=== PATIENT | male | born 1945 | race Caucasian/White ===

== ENCOUNTER 2017-07-07 14:33 | Observation (INO) ==
[2017-07-07] MEDS ORDERED: methylPREDNISolone 125 MG/2 ML VIAL IVP ONE (14:41)
[2017-07-07] MEDS ORDERED: Ipratropium/Albuterol Neb 3 ML IH ONE (14:41)
[2017-07-07] MEDS ORDERED: 0.9 % Sodium Chloride 1,000 ML IVC ONE (14:41)
--- NOTE | 2017-07-07 14:41 | Emergency Department Note ---
Disposition Clinical Impression: Influenza, Acute exacerbation of chronic obstructive airways disease Acute renal failure Qualifiers: Acute renal failure type: unspecified Qualified Code(s): N17.9 - Acute kidney failure, unspecified Disposition: Admitted As Inpatient Condition: Fair Referrals: Macrina Suarez MD [Primary Care Provider] - Forms: ED Satisfaction Letter General Adult HPI - General Chief complaint: ED Upper Respiratory Infection Stated complaint: "don't feel good" Time Seen by Provider: 07/07/17 14:36 Source: patient, family Mode of arrival: private vehicle Limitations: no limitations Nursing Notes Reviewed: Yes Vital Signs Reviewed: Yes - History of Present Illness HPI Narrative: Patient has been in respite care in a intermediate for about a week due to some other deaths in the family. He was taken from the intermediate 2 days ago, on Friday. He is noted to have some increased cough that is productive of some clear phlegm initially. He states that is pretty typical for him status post laryngectomy with a chronic cough. His cough is becoming more deep, rattling and productive now of copious green tinged sputum. His family states that they have to suction 2-3 times today bringing up lots of mucus. He has started to look pale and has had decreased solid and liquid intake. Had some generalized malaise. He has not been having nausea, vomiting or diarrhea. He has not had bloody or black stools. He has not been having fevers or chills. He has indicated that he has had pain in his anterior chest and back with coughing. He has been maintained on his home medications including oxygen at 2 L nasal cannula. His family has not checked his saturations at home. He arrived here at 89% on room air. He is not known to have specific ill exposures but they do not know what he was around at the intermediate. Onset (ago): day(s) Location: chest, back Pain Severity: moderate Consistency: intermittent Improves with: rest Worsens with: movement, other (Coughing) Associated symptoms: Reports: confusion (Alzheimer's with reported increased confusion), chest pain, cough, fever/chills, loss of appetite, malaise, shortness of breath, weakness. Denies: diaphoresis, headaches, nausea/vomiting , rash, seizure, syncope - Related Data Home Medications Medication Instructions Recorded Confirmed No Known Home Drugs 07/07/17 07/07/17 Allergies Allergy/AdvReac Type Severity Reaction Status Date / Time codeine AdvReac Hallucinati Verified 05/08/16 07:56 ng morphine AdvReac Hallucinati Verified 05/08/16 07:56 ng All systems ED: reviewed and negative except as stated. Past Medical History - Past Medical History Attestation: Yes The following information was validated with the patient. Source: patient, old records reviewed, obtained from family, nursing notes reviewed Medical history: Reports: cancer (Laryngeal cancer), COPD, CVA, dementia ( Alzheimer's), hyperlipidemia, hypertension, thyroid disease, other Surgical history: Reports: cataract, tracheostomy, other (Laryngectomy) Psychiatric history: Reports: anxiety, depression, panic disorder, PTSD, other - Social History Smoking Status: Never smoker Smokeless Tobacco Status: No Alcohol use: Reports: none Drug use: Reports: none Physical Exam - General Limitations: altered mental status, physical limitation, age General appearance: alert, in no apparent distress - Head Head exam: atraumatic, normocephalic, normal inspection - Eye Eye exam: Present: normal appearance, PERRL, EOMI. Absent: conjunctival injection - ENT ENT exam: normal exam, normal oropharynx, mucous membranes moist - Neck Neck exam: Present: full ROM, trachea midline, other (Patient has an intact tracheostomy for which he is bubbling a yellow mucus.). Absent: lymphadenopathy - Chest Chest inspection: Present: normal inspection, symmetric chest wall rise - Respiratory Respiratory exam: Present: respiratory distress, other (Rhonchi and conducted tracheal sounds.). Absent: wheezes, accessory muscle use, prolonged expiratory phase - Cardiovascular Cardiovascular exam: Present: regular rate, normal rhythm, normal heart sounds. Absent: tachycardia - Abdominal Exam Abdominal exam: Present: soft, Non-Tender, normal bowel sounds. Absent: tenderness, distention, guarding, rebound, rigidity - Extremities Exam Extremities exam: Present: normal inspection, full ROM, normal capillary refill. Absent: tenderness, pedal edema, calf tenderness - Expanded Lower Extremity Exam Neurovascular/Tendon exam: Present: normal capillary refill. Absent: motor deficit, sensory deficit, tendon deficit Gait: not tested/not observed - Back Exam Back exam: Present: normal inspection - Neurological Exam Neurological exam: Present: alert. Absent: motor sensory deficit - Psychiatric Psychiatric exam: Present: normal mood, flat affect - Skin Skin exam: Present: warm, dry, intact, pallor. Absent: rash, diaphoresis Course Course Narrative: All results were discussed with the patient, family and Dr. Spring. Verbal orders have been obtained for his admission. He is started on Tamiflu in addition to his antibiotics for COPD exacerbation. He is continued on IV fluids for his renal insufficiency with repeat laboratories in the morning. Vital Signs Temperature 96.9 F L 07/07/17 14:33 Pulse Rate 73 07/07/17 14:33 Respiratory Rate 20 07/07/17 14:33 Blood Pressure 81/52 07/07/17 14:33 O2 Sat by Pulse Oximetry 91 07/07/17 14:33 Temperature 96.9 F L 07/07/17 14:33 Pulse Rate 78 07/07/17 15:19 Respiratory Rate 20 07/07/17 15:19 Blood Pressure 99/53 07/07/17 15:19 O2 Sat by Pulse Oximetry 94 07/07/17 15:19 Oxygen Delivery Oxygen Delivery Trach Mask Medical Decision Making - Medical Records Medical records reviewed: Yes I reviewed the patient's medical records. - Lab Data Lab results reviewed: Yes I reviewed the patient's lab results. Result diagrams: 07/07/17 15:00 07/07/17 15:00 Lab Results 07/07/17 07/07/17 07/07/17 Range/Units 15:00 15:00 15:00 WBC 10.5 (4.3-11.1) K/mcL RBC 4.63 (4.19-5.50) M/mcL Hgb 12.8 L (12.9-16.9) g/dL Hct 37.5 (37.5-50.1) % MCV 81.0 L (83.0-100.0) fL MCH 27.6 L (28.0-33.3) pg MCHC 34.1 (31.6-35.5) g/dL RDW 14.7 H (11.5-14.5) % Plt Count 220 (140-400) K/mcL MPV 9.8 (9.4-12.4) fL Immature Gran % 0.5 (0-4) % Seg Neutrophils % 70.8 % Lymphocytes % 14.1 % Monocytes % 13.5 % Eosinophils % 0.6 % Basophils % 0.5 % Neutrophils # 7.4 (1.6-8.9) K/mcL Lymphocytes # 1.5 (0.6-4.6) K/mcL Monocytes # 1.4 H (0.0-1.3) K/mcL Eosinophils # 0.1 (0.0-0.6) K/mcL Basophils # 0.1 (0.0-0.2) K/mcL Sodium 134 L (136-145) mEq/L Potassium 4.6 H (3.5-4.5) mEq/L Chloride 99 (98-109) mEq/L Carbon Dioxide 20 (19-29) mEq/L BUN 28 H (8-26) mg/dL Creatinine 3.98 H (0.72-1.25) mg/dL Est GFR ( Amer) 18 L (> 60) Est GFR (Non-Af Amer) 15 L (> 60) BUN/Creatinine Ratio 7 (6-26) Glucose 107 H (70-99) mg/dL Calculated Osmolality 284 (280-300) Lactic Acid 0.9 (0.5-2.2) mmol/L Calcium 9.0 (8.6-10.8) mg/dL Troponin I (0-0.03) ng/mL 07/07/17 Range/Units 15:00 WBC (4.3-11.1) K/mcL RBC (4.19-5.50) M/mcL Hgb (12.9-16.9) g/dL Hct (37.5-50.1) % MCV (83.0-100.0) fL MCH (28.0-33.3) pg MCHC (31.6-35.5) g/dL RDW (11.5-14.5) % Plt Count (140-400) K/mcL MPV (9.4-12.4) fL Immature Gran % (0-4) % Seg Neutrophils % % Lymphocytes % % Monocytes % % Eosinophils % % Basophils % % Neutrophils # (1.6-8.9) K/mcL Lymphocytes # (0.6-4.6) K/mcL Monocytes # (0.0-1.3) K/mcL Eosinophils # (0.0-0.6) K/mcL Basophils # (0.0-0.2) K/mcL Sodium (136-145) mEq/L Potassium (3.5-4.5) mEq/L Chloride (98-109) mEq/L Carbon Dioxide (19-29) mEq/L BUN (8-26) mg/dL Creatinine (0.72-1.25) mg/dL Est GFR ( Amer) (> 60) Est GFR (Non-Af Amer) (> 60) BUN/Creatinine Ratio (6-26) Glucose (70-99) mg/dL Calculated Osmolality (280-300) Lactic Acid (0.5-2.2) mmol/L Calcium (8.6-10.8) mg/dL Troponin I 0.02 (0-0.03) ng/mL - Radiology Data Radiology results reviewed: Yes I reviewed the patient's radiology results. Single view chest x-ray is performed. This does not demonstrate evidence for infiltrate, effusion, pneumothorax, foreign body or heart failure. The cardiac silhouette is normal. I do not see abnormality to the osseous structures of the chest. This is on my interpretation. Impressions Chest X-Ray 07/07/17 14:42 IMPRESSION: Findings suggestive of mild pulmonary interstitial edema. Correlate with volume status. No consolidative pneumonia. No pleural effusion or pneumothorax. D/ / Sukh Casas MD / Sukh Casas MD Interpreting Provider: Sukh Casas MD - EKG Data EKG #1 EKG attestation: Yes I reviewed and interpreted this EKG. EKG shows normal: sinus rhythm, QRS complexes, ST-T waves Mullin/QRS: left axis deviation Heart block present: 1st Degree Interpretation: no acute changes, nonspecific ST-T wave changes
[2017-07-07] MEDS ORDERED: Azithromycin 500 MG in D5% in Water 250 ML IVPB ONE (14:44)
[2017-07-07 15:20] LABS: Basophils # 0.1 K/mcL (0.0-0.2); Basophils % 0.5 %; Eosinophils # 0.1 K/mcL (0.0-0.6); Eosinophils % 0.6 %; Hematocrit 37.5 % (37.5-50.1); Hemoglobin 12.8 g/dL (12.9-16.9); Immature Granulocytes % 0.5 % (0-4); Lymphocytes # 1.5 K/mcL (0.6-4.6); Lymphocytes % 14.1 %; Mean Corpuscular HGB Conc 34.1 g/dL (31.6-35.5); Mean Corpuscular Hemoglobin 27.6 pg (28.0-33.3); Mean Platelet Volume 9.8 fL (9.4-12.4); Monocytes # 1.4 K/mcL (0.0-1.3); Monocytes % 13.5 %; Neutrophils # 7.4 K/mcL (1.6-8.9); Platelet Count 220 K/mcL (140-400); Red Blood Count 4.63 M/mcL (4.19-5.50); Red Cell Distribution Width 14.7 % (11.5-14.5); Segmented Neutrophils % 70.8 %
[2017-07-07 15:28] LABS: Potassium 4.6 mEq/L (3.5-4.5)
[2017-07-07] MEDS ORDERED: Oseltamivir 6 MG/ML MLS PO ONE (16:04)
[2017-07-07] MEDS ORDERED: Ondansetron 4 MG/2 ML VIAL IVP PRN (16:29)
[2017-07-07] MEDS ORDERED: Naloxone 0.4 MG/ML INJ IVP PRN (16:29)
[2017-07-07] MEDS ORDERED: MOM Conc 10 ML UD.LIQ PO PRN (16:29)
[2017-07-07] MEDS ORDERED: Acetaminophen 325 MG TABLET PO PRN (16:29)
[2017-07-07] MEDS: Ipratropium/Albuterol Neb 3 ML IH SCH ×2 (17:52→23:32)
[2017-07-07] MEDS: 0.9 % Sodium Chloride 1,000 ML IVC SCH (18:00)
[2017-07-08] MEDS: Ipratropium/Albuterol Neb 3 ML IH SCH ×2 (03:48→10:58)
[2017-07-08 06:29] LABS: Calcium 8.9 mg/dL (8.6-10.8); Potassium 4.2 mEq/L (3.5-4.5)
[2017-07-08] MEDS: 0.9 % Sodium Chloride 1,000 ML IVC SCH (06:30)
[2017-07-08] MEDS: Oseltamivir Phosphate 30 MG CAPSULE PO SCH ×2 (08:47→20:37)
[2017-07-08] MEDS ORDERED: Azithromycin 500 MG in D5% in Water 250 ML IVPB SCH (15:00)
--- NOTE | 2017-07-08 15:01 | Internal Med History&Physical ---
Date of Encounter: 07/08/17 Time of Encounter: 14:35 Assessment and Plan (1) Influenza Current visit: Yes Status: Acute He has been started on Tamiflu. Rocephin was also given in the emergency room but I will not continue this since chest x-ray did not show pneumonia. (2) Acute renal failure Current visit: Yes Status: Acute Review of pharmacy records show use of ibuprofen. This will be discontinued. IV fluids will be given and follow-up labs done in a.m. Qualifiers: Acute renal failure type: unspecified Qualified Code(s): N17.9 - Acute kidney failure, unspecified (3) Anemia Current visit: No Status: Chronic Will discontinue ibuprofen. Continue aspirin. Order anemia testing in a.m. since microcytosis has progressed. Qualifiers: Anemia type: other cause Other causes of anemia: other cause, not classified Qualified Code(s): D64.89 - Other specified anemias Internal Medicine - H&P: HPI Chief complaint: Cough and dyspnea Admitted From: Emergency Dept Plans for Post Hospital Care: Home History of present illness: Mr. Perez is a 72 year old male who came to emergency room with increasing cough and dyspnea over the previous 2 days. He reported there was green mucus produced from coughing. He was evaluated in emergency room and found to have acute renal failure and influenza A. He was admitted to [facility] for ongoing care needs. His respiratory history is significant for having smoked from age [age] never up to 1 pack per day. He has not had PFTs. He had chest CT 02/23/2016 which showed minuscule nodule similar to a March 2015 study. He states his breathing has slightly improved since coming to emergency room. 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 He has an open tracheostomy and uses oxygen by trach mask at home. Past Med Surg Social Fam HX - Past Medical History Medical history: cancer, COPD, CVA, dementia, hyperlipidemia, hypertension, thyroid disease, other Psychiatric history: anxiety, depression, panic disorder, PTSD, other - Past Surgical History Surgical History: cataract, tracheostomy, other - Social History Smoking Status: Never smoker Smokeless Tobacco Status: No Alcohol use: none Drug use: none - Family History Mother Living Status: Hx Family Endocrine Disorder: Yes (Diabetes) Mother Sister Hx Family Endocrine Disorder: Yes (Diabetes) Father Living Status: Hx Family Endocrine Disorder: Yes (Diabetes) Brother Hx Family Endocrine Disorder: Yes (Diabetes) Sister Hx Family Cancer: Yes Hx Family Endocrine Disorder: Yes (Diabetes) Internal Medicine - H&P: Meds No Known Home Drugs 07/07/17 [History] 3 Allergy/AdvReac Type Severity Reaction Status Date / Time codeine AdvReac Hallucinati Verified 05/08/16 07:56 ng morphine AdvReac Hallucinati Verified 05/08/16 07:56 ng All Systems PM: A 10-system review of systems was performed and is negative for pertinent findings except as documented above in the HPI. Review of systems: Review of systems from his May 2016 [facility] hospitalization were reviewed and revised as below. Gen.: His weight decreased from 180 pounds at January 2015 hospitalization to approximately 165 pounds May 2016 and is now approximately 187 pounds. Cardiovascular: He has history of hypertension but no LA angina DVT or pulmonary embolus. He had a heart catheter March 2013 at [facility] which showed 20% stenosis in the first diagonal branch of the LAD and 20% stenosis in the proximal circumflex. The LMCA, RCA, and PDA were free of disease. Respiratory: As per history of present illness GI: He denies disorders of his liver gallbladder or exocrine pancreas. He has had esophageal dilatation done in March 2016 : No history of hematuria dysuria or kidney stones Neurologic: He claims a mild stroke occurred in 2009 leaving him with mild speech and balance disorder. He has a diagnosis of dementia but no seizures. Endocrine: He denies diabetes but has hyperlipidemia and hypothyroidism Hematology/oncology: He denies other cancer and states he believes he is cancer free from the surgery in 2014 for laryngeal squamous cell cancer. He had mild anemia on emergency room labs. Anemia testing 05/27/2016 showed iron 45, transferrin saturation 13%, transferrin 250, ferritin 81, B12 657, and folate 11.2. Psychiatric: He has anxiety and depression and occasional hallucinations Musk skeletal: He denies arthritis gout or osteoporosis. - Constitutional Vitals: Temp Pulse Resp BP Pulse Ox 98.6 F 86 94 128/67 96 07/08/17 14:00 07/08/17 14:00 07/08/17 14:00 07/08/17 14:00 07/08/17 10:58 Exam: Gen.: He is a well-developed well-nourished male who appears in no acute distress at present time HEENT: Head is atraumatic and normocephalic. Eyes: EOMI. There is no scleral icterus. Mouth: Mucosa is dry. He has a coated tongue. Neck: He has an open stoma in the lower anterior neck. There is green mucus on the edge of the stoma. He is wearing oxygen by trach mask. Heart: Regular without murmurs gallops or ectopics Lungs: No wheezes or crackles are heard. He has scattered rhonchi. Abdomen: Soft and nontender. No masses or guarding noted. Extremities: There is no cyanosis edema or clubbing noted. Dorsalis pedis and posterior tibial pulses are trace to 1+ palpable bilaterally. Neurologic: Mental status: He could not phonate. He answers questions by nodding and mouthing the answers. He seems to be understanding my questions and answers appropriately. Cranial nerves: Smile is symmetric. Forehead wrinkles bilaterally. Tongue protrudes midline. EOMI. Motor: There is no pronator drift. Cerebellar: Finger to nose is intact bilaterally. Skin: Warm and dry Internal Med - H&P Results - Labs CBC & Chem 7: 07/07/17 15:00 07/08/17 04:30 Labs: BMP 07/08/17 04:30 Sodium 136 Potassium 4.2 Chloride 103 Carbon Dioxide 18 L BUN 24 Creatinine 2.19 H Glucose 199 H Calcium 8.9
[2017-07-08] MEDS: risperiDONE 0.25 MG TABLET PO SCH (16:38)
--- NOTE | 2017-07-08 16:49 | Electrocardiograph Report ---
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
[2017-07-08] MEDS: Albuterol 2.5 MG/3 ML NEBULIZER IH PRN (18:48)
[2017-07-08] MEDS ORDERED: traZODone 50 MG TABLET PO SCH (21:00)
[2017-07-09 06:17] LABS: Basophils % 0.1 %; Eosinophils % 0.2 %; Hematocrit 31.6 % (37.5-50.1); Hemoglobin 10.8 g/dL (12.9-16.9); Immature Granulocytes % 0.4 % (0-4); Lymphocytes # 1.5 K/mcL (0.6-4.6); Lymphocytes % 17.9 %; Mean Corpuscular HGB Conc 34.2 g/dL (31.6-35.5); Mean Corpuscular Hemoglobin 27.5 pg (28.0-33.3); Mean Corpuscular Volume 80.4 fL (83.0-100.0); Monocytes # 0.8 K/mcL (0.0-1.3); Monocytes % 9.6 %; Platelet Count 200 K/mcL (140-400); Red Blood Count 3.93 M/mcL (4.19-5.50); Red Cell Distribution Width 14.8 % (11.5-14.5); Segmented Neutrophils % 71.8 %
[2017-07-09 06:35] LABS: BUN/Creatinine Ratio 16 (6-26); Blood Urea Nitrogen 16 mg/dL (8-26); Calcium 8.8 mg/dL (8.6-10.8); Carbon Dioxide 24 mEq/L (19-29); Chloride 107 mEq/L (98-109); Glucose 100 mg/dL (70-99); Osmolality,Calculated 289 (280-300); Potassium 4.2 mEq/L (3.5-4.5); Sodium 139 mEq/L (136-145); eGFR For African Americans > 60 (> 60); eGFR For Non-African Americans > 60 (> 60)
[2017-07-09 07:09] VITALS: BP 117/68
--- NOTE | 2017-07-09 08:57 | Discharge Summary ---
Date of Encounter: 07/09/17 Time of Encounter: 08:45 - Discharge Diagnosis (1) Influenza Priority: Primary Status: Acute (2) Acute renal failure Priority: Secondary Status: Resolved Qualifiers: Acute renal failure type: unspecified Qualified Code(s): N17.9 - Acute kidney failure, unspecified (3) Anemia Priority: Secondary Status: Chronic Qualifiers: Anemia type: other cause Other causes of anemia: other cause, not classified Qualified Code(s): D64.89 - Other specified anemias - Discharge Medications Prescriptions: Doxycycline Hyclate 100 mg PO BID #14 tablet Lactobacillus [Culturelle] 1 each PO BID #14 cap.sprink Home Medications: Doxycycline Hyclate 100 mg PO BID #14 tablet 07/09/17 [Rx] Lactobacillus [Culturelle] 1 each PO BID #14 cap.sprink 07/09/17 [Rx] Allergies/Adverse Reactions: 3 Allergy/AdvReac Type Severity Reaction Status Date / Time codeine AdvReac Hallucinati Verified 05/08/16 07:56 ng morphine AdvReac Hallucinati Verified 05/08/16 07:56 ng Date of admission: 07/07/17 16:11 Primary care physician: Macrina Suarez - Patient Status Disposition: Home, Self-Care Condition: Fair Overall status at discharge: patient is progressing back to baseline - Discharge Instructions Follow Up With: Macrina Suarez MD [Primary Care Provider] - 1 week - Diet and Activity Activity: resume usual activities as tolerated Diet: advance to your usual diet Hospital course: Mr. Perez is a 72 year old male who came to emergency room with increasing cough and dyspnea over the previous 2 days. He reported there was green mucus produced from coughing. He was evaluated in emergency room and found to have acute renal failure and influenza A. He was admitted to [facility] for ongoing care needs. Initial orders were written by the emergency room physician. I saw him on July 08 and performed the history and physical. He was started on Tamiflu for influenza A. Rocephin was given in emergency room but I did not continue this since there was no evidence of pneumonia initially. Sputum culture returned showing staph aureus with final report pending at time of discharge. He will be given 7 day course of doxycycline with Lactobacillus at discharge. He will also continue Tamiflu for 5 additional days. IV fluids were given and ibuprofen was discontinued. His azotemia normalized with BUN and creatinine being 16 and 0.97 respectively on day of discharge with estimated GFR greater than 60. Hemoglobin decreased with IV fluid administration to 10.8 on day of discharge . Anemia testing was ordered with results pending at time of discharge. His PCP Dr. Suarez can follow-up on this. He will discharged home today and follow up with Dr. Suarez within 1 week. He will remain off ibuprofen at home. - Time Spent with Patient Total time spent providing and/or coordinating discharge services: - Constitutional Vitals: Temp Pulse Resp BP Pulse Ox 98.1 F 65 17 117/68 94 07/09/17 07:09 07/09/17 07:09 07/09/17 07:09 07/09/17 07:09 07/09/17 07:09
[2017-07-09 09:08] LABS: % Iron Saturation 16 % (20-55); Ferritin 125 ng/ml (20-250); Iron 51 mcg/dL (65-175); Transferrin 231 mg/dL (203-362)
[2017-07-09] MEDS: Albuterol 2.5 MG/3 ML NEBULIZER IH PRN (09:20)
[2017-07-09] MEDS: risperiDONE 0.25 MG TABLET PO SCH (09:24)
[2017-07-09] MEDS: Oseltamivir Phosphate 30 MG CAPSULE PO SCH (09:27)
--- NOTE | 2017-07-09 11:31 | Physician Discharge Referral ---
Home Health/Hosp Referral Info Transfer to: Home Health Attending Provider: Saw Provider in Charge Post Discharge: PCP (Macrina Suarez M.D.) - Diagnosis (1) Influenza Priority: Primary Status: Acute (2) Acute renal failure Priority: Secondary Status: Resolved (3) Anemia Priority: Secondary Status: Chronic - Respiratory Orders Oxygen / L per min (Oxygen by trach mask as previously ordered) Smoking Cessation: Smoking cessation has been advised. For more information, call the [place] Tobacco Quit Line at 3-584-NWAQ-NOW. - Services Needed Following services are medically necessary services: Nursing, Home Health Aide, Physical Therapy, Occupational Therapy - Transfer Medications Prescriptions: Doxycycline Hyclate 100 mg PO BID #14 tablet Lactobacillus [Culturelle] 1 each PO BID #14 cap.sprink Home Medications: Doxycycline Hyclate 100 mg PO BID #14 tablet 07/09/17 [Rx] Lactobacillus [Culturelle] 1 each PO BID #14 cap.sprink 07/09/17 [Rx] Allergies/Adverse Reactions: 3 Allergy/AdvReac Type Severity Reaction Status Date / Time codeine AdvReac Hallucinati Verified 05/08/16 07:56 ng morphine AdvReac Hallucinati Verified 05/08/16 07:56 ng Certification: Further, I certify that my clinical findings support that this patient is homebound (i.e. absences from home require considerable and taxing effort and are for medical reasons or adventist services or infrequently or short duration when for other reasons) because: Homebound Reason: Leaving home requires considerable and taxing effort due to condition (COPD with tracheostomy) Attestation: My signature below is to certify that this patient is under my care and that I, or nurse practitioner, or a physician's legal executive assistant working with me, has a face-to -face encounter with this patient.
[2017-07-09 11:50] LABS: Folate 16.8 ng/mL (3.0-16.0)
== END 2017-07-09 14:07 | disposition home or self-care (01) ==
LOC: EMEROOPIK 14:33 → INPPIK 14:33
PROVIDERS: ADMIT Internal Medicine; ATTEND Internal Medicine